=== PATIENT | female | born 1965 | race Caucasian/White ===

== ENCOUNTER 2019-01-14 19:40 | Observation (INO) ==
[2019-01-14] MEDS ORDERED: ACETAMINOPHEN 65 ML IV ONE (19:59)
[2019-01-14] MEDS ORDERED: DiphenhydrAMINE HCL 50 MG/ML VIAL IV STA (19:59)
[2019-01-14] MEDS ORDERED: METOCLOPRAMIDE HCL INJ 5 MG/ML 2 ML VIAL IV STA (19:59)
[2019-01-14] MEDS ORDERED: SODIUM CHLORIDE 0.9% 1000ML 1,000 ML IV SCH (20:00)
[2019-01-14] MEDS ORDERED: ACETAMINOPHEN 1000 MG/100 ML IV IV ONE (20:03)
[2019-01-14 20:29] LABS: Appearance Urine Turbid (Clear); Bacteria Urine Automated Negative (Negative); Bilirubin Urine Negative (Negative); Blood Urine Trace (Negative); Color Urine Yellow; Epithelial Cell Urine Auto >30 /lpf (0-5); Glucose Urine UA Negative (Negative); Ketones Urine Trace (Negative); Leukocyte Esterase Urine Negative (Negative); Nitrite Urine Negative (Negative); Protein Urine Negative (Negative); Urobilinogen Urine Negative (Negative)
[2019-01-14 20:39] LABS: Basophils # (auto) 0.02 K/uL (0-0.2); Basophils % (auto) 0.2 %; Hematocrit (blood only) 40.6 % (37-47); Hemoglobin 14.4 g/dL (12.0-16.0); Immature Granulocytes # (auto) 0.03 K/uL (0.00-0.02); Immature Granulocytes % (auto) 0.3 %; Lymphocytes # (auto) 1.09 K/uL (1.2-3.4); Lymphocytes % (auto) 9.7 %; Mean Corpuscular Hgb Conc 35.5 g/dL (32-36); Mean Corpuscular Volume 83.9 fL (80-100); Mean Platelet Volume 8.8 fL (7.4-10.4); Monocytes # (auto) 0.28 K/uL (0.11-0.59); Monocytes % (auto) 2.5 %; Neutrophils # (auto) 9.83 K/uL (1.4-6.5); Neutrophils % (auto) 87.3 %; Platelet Count 272 K/uL (130-400); RDW Coefficient of Variation 12.9 % (11.5-14.5); RDW Standard Deviation 39.2 fL (36.4-46.3); Red Blood Count 4.84 M/uL (4.2-5.4); White Blood Count 11.25 K/uL (4.8-10.8)
[2019-01-14 20:58] LABS: BUN Creatinine Ratio 20.3 (10-20); Calcium 9.2 mg/dl (8.5-10.1); Creatinine Clr Calc Pharmacy 117.6 ml/min; Est GFR (African American) 119.6; Est GFR (Non-African American) 103.2; Potassium 3.6 mmol/L (3.5-5.1)
--- NOTE | 2019-01-14 20:58 | CT Scan Report ---
CT head/brain wo con CT DOSE: 537.48 mGy.cm HISTORY: Nausea vertigo TECHNIQUE: Multiaxial CT images of the head were performed without the use of intravenous contrast. A dose lowering technique was utilized adhering to the principles of ALARA. Comparison: None. Findings: The paranasal sinuses and mastoid air cells are clear. The calvarium and skull base are int act. The ventricles and sulci are within normal limits. There is no mass, hematoma, midline shift, or acute infarct. Impression: No acute intracranial abnormality. The above report was generated using voice recognition software. It may contain grammatical, syntax or spelling errors. Electronically signed by: Karsten De La Rosa M.D. 01/14/2019 8:57 PM
[2019-01-14] MEDS ORDERED: KETOROLAC 30 MG/ML VIAL IV STA (21:22)
[2019-01-14] MEDS ORDERED: SODIUM CHLORIDE 0.9% 1000ML 500 ML IV ONE (21:22)
[2019-01-14] MEDS ORDERED: PROMETHAZINE 25 MG/51 ML BAG IV STA (21:22)
[2019-01-14] MEDS ORDERED: OPTIRAY 320 125ml IV PRN (21:55)
--- NOTE | 2019-01-14 22:06 | CT Scan Report ---
CT angio neck with con HISTORY: Mental status change vertigo/DUCKWORTH TECHNIQUE: Multiaxial CT angiography of the neck was performed IV contrast: None. All measurem ents were calculated based on NASCET criteria. Maximum intensity projection images were also obtaine d. A dose lowering technique was utilized adhering to the principles of ALARA. COMPARISON STUDY: None. FINDINGS: The aortic arch and proximal great vessels are widely patent. There is no significant sten osis, occlusion, or dissection identified within the bilateral common carotid, internal carotid, or v ertebral arteries. IMPRESSION: No significant stenosis, occlusion, or dissection identified within the carotid or vertebral arteries . The above report was generated using voice recognition software. It may contain grammatical, syntax or spelling errors. Electronically signed by: Karsten De La Rosa M.D. 01/14/2019 10:04 PM
--- NOTE | 2019-01-14 22:07 | CT Scan Report ---
CT angio head w con HISTORY: Mental status change vertigo/DUCKWORTH TECHNIQUE: Multiaxial CT angiography of the head was performed IV contrast: None. Maximum in tensity projection images were also obtained. A dose lowering technique was utilized adhering to the principles of ALARA. COMPARISON: None. FINDINGS: There is no mass, hematoma, midline shift, or acute infarct. Visualized intracranial international project manager al carotid arteries, distal vertebral arteries, and basilar artery are widely patent. There is no sig nificant stenosis, occlusion, or aneurysm seen within the bilateral ACAs, MCAs, or slate trimmer. IMPRESSION: No significant stenosis, occlusion, or aneurysm within the [place]. The above report was generated using voice recognition software. It may contain grammatical, syntax or spelling errors. Electronically signed by: Karsten De La Rosa M.D. 01/14/2019 10:05 PM
--- NOTE | 2019-01-14 23:00 | Emergency Department Note ---
Entered by Raymond Obrien acting as a scribe for History of Present Illness General Chief complaint: Vomiting Stated complaint: VOMITING, DIZZINESS Time Seen by Provider: 01/14/19 19:43 History of Present Illness Onset (ago): hour(s) 6 Location: abdomen Pain Consistency: + intermittent Maximum Pain Intensity: 0 Quality: + other ("room spinning") Exacerbated By: + movement Associated symptoms: + denies other symptoms (ear pain, ear ringing, vision problems, abdominal pain, ), + cough, + nausea/vomiting and + other (dizziness,) The patient is a 53 white female w/ PMHx IBS, hiatal hernia, and heart murmur who presents to the ED w/ CC of intermittent vomiting beginning 6 hours ago. The patient states she had lunch and then went to work. She states when she was at work all of a sudden she started to feel sick. She states she vomited many times. She notes it feels like the room is spinning. She states this has never happened before. The patient notes she feels very dizzy. She notes she has nausea from the room spinning. She states she has had some diarrhea and notes she loses control of her bowels sometimes when she vomits. She notes she had a cough before her symptoms began. She states she has cramping in her lower abdomen. The patient states she takes a daily aspirin and takes vitamins. The patient denies recent trauma, ear pain, ear ringing, vision problems, abdominal pain, recent surgeries, alcohol or tobacco use, changes in her diet, and any drug allergies. She states no one else is sick at home. She notes she smoked many years ago. Home Medications Home Medications Medication Instructions Recorded Confirmed Type ascorbic acid (vitamin C) [Vitamin 500 mg PO DAILY 01/14/19 01/14/19 History C] aspirin [Aspirin Low Dose] 81 mg PO DAILY 01/14/19 01/14/19 History cyanocobalamin (vitamin B-12) 1,000 mcg PO DAILY 01/14/19 01/14/19 History modafinil 200 mg PO DAILY 01/14/19 01/14/19 History pantoprazole 40 mg PO QPM 01/14/19 01/14/19 History umeclidinium-vilanterol [Anoro 1 puff INHALATION DAILY 01/14/19 01/14/19 History Ellipta] fluticasone propionate [Flonase 1 sprays INTNAS DAILY #15.8 gm 01/15/19 Rx Allergy Relief] lisinopril 2.5 mg PO QAM #30 tab 01/15/19 Rx oxymetazoline [Afrin 2 sprays INTNAS BID 3 Days #30 ml 01/15/19 Rx (oxymetazoline)] Allergies Allergy/AdvReac Type Severity Reaction Status Date / Time No Known Allergies Allergy Unverified 01/14/19 20:43 Past Med/Surg History Medical History Heart murmur Hiatal hernia IBS (irritable bowel syndrome) Surgical History No pertinent past surgical history Social History Preferred Language: Korean Communication Ability: Effective Beliefs That Will Affect Care: None Current Living Situation: Family Other Information That Helps Us Care for You: No Feels Safe at Home: Yes Safety Concerns: Feels Safe At This Time Smoking Status: Never smoker Do You Dip or Chew Tobacco: No Second Hand Exposure: No Tobacco Cessation Education Requested by Patient: No Hx Alcohol Use: No Hx Substance Use: No Review of Systems See HPI for pertinent positives & negatives. Physical Exam Vital Signs Vital Signs - 24 hr 01/14/19 19:44 01/14/19 21:16 01/14/19 22:28 Temperature 36.3 C L Temperature Source Oral Sepsis Recent Fever Within 48 Hours No Sepsis New/Unexplained Change in Mental Status No Sepsis Action Taken by Nursing No Action Required Pulse Rate 67 Pulse Rate [Right Finger] 69 85 Respiratory Rate 18 18 18 Respiratory Effort / Characteristics Non-Labored Respiratory Depth Normal Respiratory Pattern Regular Blood Pressure 193/101 H Blood Pressure [Right Arm] 207/105 H 195/107 H Blood Pressure Mean 131 Blood Pressure Mean [Right Arm] 139 136 Pulse Oximetry 97 98 98 Oxygen Delivery Method Room Air 01/14/19 23:35 Temperature Temperature Source Sepsis Recent Fever Within 48 Hours Sepsis New/Unexplained Change in Mental Status Sepsis Action Taken by Nursing Pulse Rate Pulse Rate [Right Finger] 89 Respiratory Rate 17 Respiratory Effort / Characteristics Non-Labored Spontaneous Respiratory Depth Normal Respiratory Pattern Regular Blood Pressure Blood Pressure [Right Arm] 155/71 H Blood Pressure Mean Blood Pressure Mean [Right Arm] 99 Pulse Oximetry 97 Oxygen Delivery Method Room Air GENERAL: Well appearing, well nourished, NAD, non-toxic. EYE EXAM: Normal conjunctiva. PERRL, no anisocoria and EOM's grossly intact w/o pain. Rightwards beating nystagmus on Rward gaze. No vertical or gyrational nystagmus. EARS: TMs clear bilaterally. Good light reflex. No effusion. OROPHARYNX: Moist mucous membranes. Normal dentition. NECK: Supple, no nuchal rigidity, no adenopathy, non-tender. no signs of meningismus. LUNGS: Clear to auscultation. Normal chest wall mechanics. HEART: NSR, no MRG. ABDOMEN: Abdomen soft, non-tender, normo-active bowel sounds, no masses, no rebound or guarding. BACK: No CVA TTP. SKIN: No rashes and no bruising. UPPER EXTREMITIES: Upper extremities are grossly normal. LOWER EXTREMITIES: No pitting edema. No calf pain. NEURO EXAM: Cranial nerves II-XII grossly intact, normal speech. No sensory deficits, normal pronator drift. 5/5 strength throughout. Moves all 4 extremities on command w/o issue. Course 1952: The patient was evaluated in room B6, and a complete history and physical examination were performed. 2129: I reevaluated the patient. She states she is feeling a little better. []: I reviewed the patient's case with []. [] will evaluate the patient for further management. Administered Medications Aspirin (Ecotrin Ectab) 81 mg PO DAILY [facility] Stop: 02/14/19 08:59 Last Admin: 01/15/19 08:39 Dose: 81 mg Documented by: [id number] Cyanocobalamin (Vitamin B-12) 1,000 mcg PO DAILY AJ Stop: 02/14/19 08:59 Last Admin: 01/15/19 08:39 Dose: 1,000 mcg Documented by: [id number] Enoxaparin Sodium (Lovenox) 40 mg SQ QAM [facility] Stop: 02/14/19 08:59 Last Admin: 01/15/19 09:30 Dose: 40 mg Documented by: [id number] Potassium Chloride/Sodium Chloride (Normal Saline W/20 Meq Kcl) 20 meq in 1,000 mls @ 60 mls/hr IV .[id number] [facility] Stop: 01/15/19 21:45 Last Admin: 01/15/19 05:39 Dose: 60 mls/hr Documented by: [id number] Meclizine HCl (Antivert) 12.5 mg PO QID PRN PRN Reason: Dizziness or Vertigo Stop: 02/14/19 05:05 Last Admin: 01/15/19 08:39 Dose: 12.5 mg Documented by: [id number] Miscellaneous (Order Awaiting Action) 1 ea N/A QS AJ Stop: 02/14/19 07:59 Last Admin: 01/15/19 08:39 Dose: Not Given Documented by: [id number] Modafinil (Provigil) 200 mg PO DAILY AJ Stop: 02/14/19 08:59 Last Admin: 01/15/19 08:38 Dose: 200 mg Documented by: [id number] Discontinued Medications Acetaminophen (Ofirmev) Confirm Administered Dose 1,000 mg IV .STK-MED ONE Stop: 01/14/19 20:04 Last Admin: 01/14/19 20:25 Dose: Not Given Documented by: [id number] Dexamethasone Sodium Phosphate (Decadron Pf) 10 mg IV NOW ONE Stop: 01/14/19 23:13 Last Admin: 01/14/19 23:35 Dose: 10 mg Documented by: [id number] Diphenhydramine HCl (Benadryl) 25 mg IV NOW STA Stop: 01/14/19 20:00 Last Admin: 01/14/19 20:25 Dose: Not Given Documented by: [id number] Acetaminophen (Ofirmev) 65 mls @ 200 mls/hr IV NOW ONE Stop: 01/14/19 20:18 Last Infusion: 01/14/19 21:16 Dose: 0 mls/hr Documented by: [id number] Admin: 01/14/19 20:25 Dose: 200 mls/hr Documented by: [id number] Sodium Chloride (Nss 1000ml) 1,000 mls @ 999 mls/hr IV .Q1H1M AJ Stop: 01/14/19 21:00 Last Infusion: 01/14/19 22:29 Dose: 0 mls/hr Documented by: [id number] Admin: 01/14/19 20:25 Dose: 999 mls/hr Documented by: [id number] Sodium Chloride (Nss 1000ml) 500 mls @ 999 mls/hr IV .Q31M ONE Stop: 01/14/19 21:52 Last Infusion: 01/14/19 22:28 Dose: 0 mls/hr Documented by: [id number] Admin: 01/14/19 21:22 Dose: 999 mls/hr Documented by: [id number] Promethazine HCl (Phenergan) 25 mg in 51 mls @ 204 mls/hr IV NOW STA Stop: 01/14/19 21:36 Last Infusion: 01/14/19 22:29 Dose: 0 mls/hr Documented by: [id number] Admin: 01/14/19 21:36 Dose: 204 mls/hr Documented by: [id number] Ioversol (Optiray 320 125ml) 117 ml IV ONCE PRN PRN Reason: Interaction Checking Stop: 01/18/19 21:54 Last Admin: 01/14/19 21:56 Dose: 117 ml Documented by: [id number] Ketorolac Tromethamine (Toradol) 30 mg IV NOW STA Stop: 01/14/19 21:23 Last Admin: 01/14/19 21:36 Dose: 30 mg Documented by: [id number] Lisinopril (Zestril) 2.5 mg PO NOW STA Stop: 01/14/19 23:17 Last Admin: 01/14/19 23:35 Dose: 2.5 mg Documented by: [id number] Meclizine HCl (Antivert) 25 mg PO NOW STA Stop: 01/14/19 23:13 Last Admin: 01/14/19 23:35 Dose: 25 mg Documented by: [id number] Metoclopramide HCl (Reglan) 10 mg IV NOW STA Stop: 01/14/19 20:00 Last Admin: 01/14/19 20:25 Dose: 10 mg Documented by: [id number] Medical Decision Making Medical Records Attestation: I reviewed the patient's medical records. Home Medications Current Medication List: was personally reviewed by me Laboratory Data Attestation: I reviewed the patient's lab results. Result diagrams: 01/14/19 20:23 01/14/19 20:23 Lab Results 01/13/19 01/14/19 01/14/19 Range/Units 20:23 17:52 20:23 WBC 11.25 H (4.8-10.8) K/uL RBC 4.84 (4.2-5.4) M/uL Hgb 14.4 (12.0-16.0) g/dL Hct 40.6 (37-47) % MCV 83.9 (80-100) fL MCH 29.8 (25-34) pg MCHC 35.5 (32-36) g/dL RDW Std Deviation 39.2 (36.4-46.3) fL RDW Coeff of Mary 12.9 (11.5-14.5) % Plt Count 272 (130-400) K/uL MPV 8.8 (7.4-10.4) fL Immature Gran % (Auto) 0.3 % Neut % (Auto) 87.3 % Lymph % (Auto) 9.7 % Henry % (Auto) 2.5 % Eos % (Auto) 0.0 % Baso % (Auto) 0.2 % Immature Gran # (Auto) 0.03 H (0.00-0.02) K/uL Neut # (Auto) 9.83 H (1.4-6.5) K/uL Lymph # (Auto) 1.09 L (1.2-3.4) K/uL Henry # (Auto) 0.28 (0.11-0.59) K/uL Eos # (Auto) 0.00 (0-0.5) K/uL Baso # (Auto) 0.02 (0-0.2) K/uL Sodium (136-145) mmol/L Potassium (3.5-5.1) mmol/L Chloride (98-107) mmol/L Carbon Dioxide (21-32) mmol/L Anion Gap (3-11) BUN (7-18) mg/dl Creatinine (0.6-1.2) mg/dl Est Cr Clr Drug Dosing ml/min Est GFR ( Amer) Est GFR (Non-Af Amer) BUN/Creatinine Ratio (10-20) Glucose (70-99) mg/dl Estimat Average Glucose 114 mg/dl Hemoglobin A1c 5.6 (4.5-5.6) % Calcium (8.5-10.1) mg/dl Total Bilirubin (0.2-1) mg/dl Direct Bilirubin (0-0.2) mg/dl AST (15-37) U/L ALT (12-78) U/L Alkaline Phosphatase (45-117) U/L Total Protein (6.4-8.2) gm/dl Albumin (3.4-5.0) gm/dl TSH (0.300-4.500) uIu/ml Urine Color Yellow Urine Appearance Turbid A (Clear) Urine pH 8.0 H (4.5-7.5) Ur Specific [place] 1.020 (1.000-1.030) Urine Protein Negative (Negative) Urine Glucose (UA) Negative (Negative) Urine Ketones Trace H (Negative) Urine Blood Trace H (Negative) Urine Nitrite Negative (Negative) Urine Bilirubin Negative (Negative) Urine Urobilinogen Negative (Negative) Ur Leukocyte Esterase Negative (Negative) Urine WBC (Auto) 1-5 (0-5) /hpf Urine RBC (Auto) 5-10 H (0-4) /hpf U Hyaline Cast (Auto) 1-5 (0-5) /lpf U Epithel Cells (Auto) >30 H (0-5) /lpf Urine Bacteria (Auto) Negative (Negative) 01/14/19 Range/Units 20:23 WBC (4.8-10.8) K/uL RBC (4.2-5.4) M/uL Hgb (12.0-16.0) g/dL Hct (37-47) % MCV (80-100) fL MCH (25-34) pg MCHC (32-36) g/dL RDW Std Deviation (36.4-46.3) fL RDW Coeff of Mary (11.5-14.5) % Plt Count (130-400) K/uL MPV (7.4-10.4) fL Immature Gran % (Auto) % Neut % (Auto) % Lymph % (Auto) % Henry % (Auto) % Eos % (Auto) % Baso % (Auto) % Immature Gran # (Auto) (0.00-0.02) K/uL Neut # (Auto) (1.4-6.5) K/uL Lymph # (Auto) (1.2-3.4) K/uL Henry # (Auto) (0.11-0.59) K/uL Eos # (Auto) (0-0.5) K/uL Baso # (Auto) (0-0.2) K/uL Sodium 139 (136-145) mmol/L Potassium 3.6 (3.5-5.1) mmol/L Chloride 105 (98-107) mmol/L Carbon Dioxide 27 (21-32) mmol/L Anion Gap 7.0 (3-11) BUN 12 (7-18) mg/dl Creatinine 0.59 L (0.6-1.2) mg/dl Est Cr Clr Drug Dosing 117.6 ml/min Est GFR ( Amer) 119.6 Est GFR (Non-Af Amer) 103.2 BUN/Creatinine Ratio 20.3 H (10-20) Glucose 132 H (70-99) mg/dl Estimat Average Glucose mg/dl Hemoglobin A1c (4.5-5.6) % Calcium 9.2 (8.5-10.1) mg/dl Total Bilirubin 0.5 (0.2-1) mg/dl Direct Bilirubin 0.2 (0-0.2) mg/dl AST 20 (15-37) U/L ALT 32 (12-78) U/L Alkaline Phosphatase 159 H (45-117) U/L Total Protein 7.6 (6.4-8.2) gm/dl Albumin 4.2 (3.4-5.0) gm/dl TSH 0.936 (0.300-4.500) uIu/ml Urine Color Urine Appearance (Clear) Urine pH (4.5-7.5) Ur Specific [place] (1.000-1.030) Urine Protein (Negative) Urine Glucose (UA) (Negative) Urine Ketones (Negative) Urine Blood (Negative) Urine Nitrite (Negative) Urine Bilirubin (Negative) Urine Urobilinogen (Negative) Ur Leukocyte Esterase (Negative) Urine WBC (Auto) (0-5) /hpf Urine RBC (Auto) (0-4) /hpf U Hyaline Cast (Auto) (0-5) /lpf U Epithel Cells (Auto) (0-5) /lpf Urine Bacteria (Auto) (Negative) Imaging Data Radiologist's Impression: Radiology results as stated below per my review and the radiologist's interpretation: CT head/brain wo con CT DOSE: 537.48 mGy.cm HISTORY: Nausea vertigo TECHNIQUE: Multiaxial CT images of the head were performed without the use of intravenous contrast. A dose lowering technique was utilized adhering to the principles of ALARA. Comparison: None. Findings: The paranasal sinuses and mastoid air cells are clear. The calvarium and skull base are intact. The ventricles and sulci are within normal limits. There is no mass, hematoma, midline shift, or acute infarct. Impression: No acute intracranial abnormality. The above report was generated using voice recognition software. It may contain grammatical, syntax or spelling errors. Electronically signed by: Karsten De La Rosa M.D. 01/14/2019 8:[address] angio head w con HISTORY: Mental status change vertigo/DUCKWORTH TECHNIQUE: Multiaxial CT angiography of the head was performed IV contrast: None. Maximum intensity projection images were also obtained. A dose lowering technique was utilized adhering to the principles of ALARA. COMPARISON: None. FINDINGS: There is no mass, hematoma, midline shift, or acute infarct. Visualized intracranial internal carotid arteries, distal vertebral arteries, and basilar artery are widely patent. There is no significant stenosis, occlusion, or aneurysm seen within the bilateral ACAs, MCAs, or microsoft net developer. IMPRESSION: No significant stenosis, occlusion, or aneurysm within the [place]. The above report was generated using voice recognition software. It may contain grammatical, syntax or spelling errors. Electronically signed by: Karsten De La Rosa M.D. 01/14/2019 10:05 PM Dictated: 01/14/192203 Transcribed: 01/14/192203 CT angio neck with con HISTORY: Mental status change vertigo/DUCKWORTH TECHNIQUE: Multiaxial CT angiography of the neck was performed IV contrast: None. All measurements were calculated based on NASCET criteria. Maximum intensity projection images were also obtained. A dose lowering technique was utilized adhering to the principles of ALARA. COMPARISON STUDY: None. FINDINGS: The aortic arch and proximal great vessels are widely patent. There is no significant stenosis, occlusion, or dissection identified within the bilateral common carotid, internal carotid, or vertebral arteries. IMPRESSION: No significant stenosis, occlusion, or dissection identified within the carotid or vertebral arteries. The above report was generated using voice recognition software. It may contain grammatical, syntax or spelling errors. Electronically signed by: Karsten De La Rosa M.D. 01/14/2019 10:04 PM Dictated: 01/14/192200 Transcribed: 01/14/192200 ECG Data Attestation: I personally reviewed and interpreted this ECG as follows: Indication: vomiting Rate (beats per minute): 66 Rhythm: normal sinus Findings: + other (normal intervals and axis), + RBBB (incomplete) and + T-wave inversion (lead 3 and avF) Blood Pressure Blood Pressure Findings: Elevated blood pressure Blood Pressure Disposition: further management by hospitalist AMELIA Andre The patient is a 53 white female w/ PMHx IBS, hiatal hernia, and heart murmur who presents to the ED w/ CC of intermittent vomiting beginning 6 hours ago. Differential Diagnosis: Acute intracranial bleed, trauma, meningitis, encephalitis, increased intracranial pressure, mass or mass effect, facial or dental infection, temporal arteritis, CVA, TIA, acute hypertensive emergency, sinusitis, carbon monoxide exposure. Patient was seen and evaluated the bedside. The patient was complaining of some vertiginous symptoms and associated nausea with vomiting. Patient denies any trauma. The patient states she has not had any recent sore throat congestion or cough. The patient denies any numbness tingling or weakness. On exam the patient does have some nystagmus. It is not vertical nor gyration on. Patient has a soft abdomen otherwise. The patient did have blood work completed along with a CT of the brain. Blood work unremarkable. CT the brain is negative acute. The patient still fairly symptomatic so she was treated with additional medications and did have a CT angiography completed of the head neck. No obvious stenosis or aneurysm visualized. The patient states that she was feeling somewhat improved but still was having some mild ambulatory dysfunction. The patient was trialed with some drinks of the eat. Upon reassessment patient was still symptomatic and not feeling very well. Given the patient's persistent vertiginous symptoms and associated ambulatory dysfunction list agreed to further evaluate treat the patient. Patient was admitted to the medicine service. Impression & Plan Vertigo, Nausea & vomiting Discharge Plan Visit Data *Final* Discharge Date/Time: 01/15/19 04:25 Chief Complaint: Vomiting Stated Complaint: VOMITING, DIZZINESS ED Provider: Osbaldo Tidwell Discharge Problem: Vertigo, Nausea & vomiting Patient Disposition: Admitted As Inpatient Condition: Good Discharge Instructions Interventions: ED Discharge Assessment Last Done: 01/15/19 04:25 Discharge Problem: Nausea & vomiting Qualifiers: Vomiting type: unspecified Vomiting Intractability: non-intractable Qualified Code(s): R11.2 - Nausea with vomiting, unspecified The scribe's documentation has been prepared under my direction and personally reviewed by me in its entirety. I confirm that the note above accurately reflects all work, treatment, procedures, and medical decision making performed by me.
[2019-01-14] MEDS ORDERED: MECLIZINE HCL 25 MG TAB PO STA (23:12)
[2019-01-14] MEDS ORDERED: DEXAMETHASONE **PF** INJ 10 MG/ML VIAL IV ONE (23:12)
[2019-01-14] MEDS ORDERED: LISINOPRIL 5 MG TAB PO STA (23:16)
[2019-01-14 23:46] LABS: Albumin Level 4.2 gm/dl (3.4-5.0); Bilirubin Direct 0.2 mg/dl (0-0.2); Bilirubin,Total 0.5 mg/dl (0.2-1); Total Protein 7.6 gm/dl (6.4-8.2)
--- NOTE | 2019-01-15 01:39 | History & Physical Report ---
Date of Service January 15, 2019 Assessment & Plan (1) Dizziness: Dizziness Multifactorial : Acute peripheral vertigo Hypertensive urgency, possibly chronic given LAE, LVH on EKG Hyperglycemia rule out DM OBS Medical telemetry Symptomatic management for acute vertigo May benefit from Elbert maneuver if persistent. Initiate low-dose KVNG inhibitor for hypertension check hemoglobin A1c DVT prophylaxis. Lovenox subcu Full code History of Present Illness Chief Complaint: Dizziness Primary Care Provider: ABNER MCLAUGHLIN History obtained from patient, family, and records. Medical history significant for mitral valve prolapse, GERD, IBS, diarrhea predominant, past tobacco abuse. Patient was working on her home yard today when she felt sick, subsequent nausea, emesis. Usual loose stools from IBS. She experienced dizziness described as spinning, no chest pain, no S OB, no headache. Dizziness worse with head motion, improved with eye closure. No recent head trauma, No ear ringing, visual problems. Patient received IV Decadron at the ER for vertigo. Dizziness symptoms much improved but patient still woozy, not sure if she can drive home. Medical History as above Surgical History : Hysterectomy, cholecystectomy, carpal tunnel surgery Family History : Hypertension Personal/Social history : Past tobacco abuse, occasional EtOH intake, retired hospital cashier clerk Allergies Allergy/AdvReac Type Severity Reaction Status Date / Time No Known Allergies Allergy Unverified 01/14/19 20:43 Home Medications Home Medications Medication Instructions Recorded Confirmed Type ascorbic acid (vitamin C) [Vitamin 500 mg PO DAILY 01/14/19 01/14/19 History C] aspirin [Aspirin Low Dose] 81 mg PO DAILY 01/14/19 01/14/19 History cyanocobalamin (vitamin B-12) 1,000 mcg PO DAILY 01/14/19 01/14/19 History modafinil 200 mg PO DAILY 01/14/19 01/14/19 History pantoprazole 40 mg PO QPM 01/14/19 01/14/19 History umeclidinium-vilanterol [Anoro 1 puff INHALATION DAILY 01/14/19 01/14/19 History Ellipta] Past Med/Surg History Medical History Heart murmur Hiatal hernia IBS (irritable bowel syndrome) Surgical History No pertinent past surgical history Social History Preferred Language: [place] Communication Ability: Effective Beliefs That Will Affect Care: None Current Living Situation: Family Other Information That Helps Us Care for You: No Feels Safe at Home: Yes Safety Concerns: Feels Safe At This Time Smoking Status: Never smoker Do You Dip or Chew Tobacco: No Second Hand Exposure: No Tobacco Cessation Education Requested by Patient: No Hx Alcohol Use: No Hx Substance Use: No Review of Systems Review of Systems: As per HPI, all 10 systems reviewed, all other ROS negative Physical Exam Physical Exam: GENERAL: Slightly uncomfortable, no respiratory distress SKIN: Normal color, warm HEENT: [place] palpebral conjunctivae, no ptosis, dry buccal mucosa NECK : Supple, no tenderness CHEST : CTA, no tenderness HEART : RRR, systolic murmurs ABDOMEN: Some distention, nontender EXTREMITIES : No LE swelling/tenderness, no other conspicuous deformities noted NEUROLOGIC : Coherent, no facial asymmetry, horizontal nystagmus noted, no other gross focality Results & Data Vital Signs (Past 12 Hours) Vital Signs Temp Pulse Pulse Resp BP BP Pulse Ox 01/14/19 23:35 89 17 155/71 H 97 01/14/19 22:28 85 18 195/107 H 98 01/14/19 21:16 69 18 207/105 H 98 01/14/19 19:44 36.3 C L 67 18 193/101 H 97 Laboratory Results Laboratory Results WBC 11.25 K/uL (4.8-10.8) H 01/14/19 20:23 RBC 4.84 M/uL (4.2-5.4) 01/14/19 20:23 Hgb 14.4 g/dL (12.0-16.0) 01/14/19 20:23 Hct 40.6 % (37-47) 01/14/19 20:23 MCV 83.9 fL (80-100) 01/14/19 20:23 MCH 29.8 pg (25-34) 01/14/19 20:23 MCHC 35.5 g/dL (32-36) 01/14/19 20:23 RDW Std Deviation 39.2 fL (36.4-46.3) 01/14/19 20:23 RDW Coeff of Mary 12.9 % (11.5-14.5) 01/14/19 20:23 Plt Count 272 K/uL (130-400) 01/14/19 20:23 MPV 8.8 fL (7.4-10.4) 01/14/19 20: Immature Gran % (Auto) 0.3 % 01/14/19 20:23 Neut % (Auto) 87.3 % 01/14/19 20:23 Lymph % (Auto) 9.7 % 01/14/19 20:23 [place] % (Auto) 2.5 % 01/14/19 20: Eos % (Auto) 0.0 % 01/14/19 20: Baso % (Auto) 0.2 % 01/14/19 20: Immature Gran # (Auto) 0.03 K/uL (0.00-0.02) H 01/14/19 20: Neut # (Auto) 9.83 K/uL (1.4-6.5) H 01/14/19 20: Lymph # (Auto) 1.09 K/uL (1.2-3.4) L 01/14/19 20: [place] # (Auto) 0.28 K/uL (0.11-0.59) 01/14/19 20: Eos # (Auto) 0.00 K/uL (0-0.5) 01/14/19 20: Baso # (Auto) 0.02 K/uL (0-0.2) 01/14/19 20:23 Sodium 139 mmol/L (136-145) 01/14/19 20: Potassium 3.6 mmol/L (3.5-5.1) 01/14/19 20: Chloride 105 mmol/L (98-107) 01/14/19 20: Carbon Dioxide 27 mmol/L (21-32) 01/14/19 20:23 Anion Gap 7.0 (3-11) 01/14/19 20: BUN 12 mg/dl (7-18) 01/14/19 20: Creatinine 0.59 mg/dl (0.6-1.2) L 01/14/19 20: Est Cr Clr Drug Dosing 117.6 ml/min 01/14/19 20: Est GFR ( Amer) 119.6 01/14/19 20:23 Est GFR (Non-Af Amer) 103.2 01/14/19 20:23 BUN/Creatinine Ratio 20.3 (10-20) H 01/14/19 20:23 Glucose 132 mg/dl (70-99) H 01/14/19 20:23 Calcium 9.2 mg/dl (8.5-10.1) 01/14/19 20:23 Total Bilirubin 0.5 mg/dl (0.2-1) 01/14/19 20:23 Direct Bilirubin 0.2 mg/dl (0-0.2) 01/14/19 20:23 AST 20 U/L (15-37) 01/14/19 20:23 ALT 32 U/L (12-78) 01/14/19 20:23 Alkaline Phosphatase 159 U/L (45-117) H 01/14/19 20:23 Total Protein 7.6 gm/dl (6.4-8.2) 01/14/19 20:23 Albumin 4.2 gm/dl (3.4-5.0) 01/14/19 20:23 TSH 0.936 uIu/ml (0.300-4.500) 01/14/19 20:23 Urine Color Yellow 01/14/19 17:52 Urine Appearance Turbid (Clear) A 01/14/19 17:52 Urine pH 8.0 (4.5-7.5) H 01/14/19 17:52 Ur Specific [place] 1.020 (1.000-1.030) 01/14/19 17:52 Urine Protein Negative (Negative) 01/14/19 17:52 Urine Glucose (UA) Negative (Negative) 01/14/19 17:52 Urine Ketones Trace (Negative) H 01/14/19 17:52 Urine Blood Trace (Negative) H 01/14/19 17:52 Urine Nitrite Negative (Negative) 01/14/19 17:52 Urine Bilirubin Negative (Negative) 01/14/19 17:52 Urine Urobilinogen Negative (Negative) 01/14/19 17:52 Ur Leukocyte Esterase Negative (Negative) 01/14/19 17:52 Urine WBC (Auto) 1-5 /hpf (0-5) 01/14/19 17:52 Urine RBC (Auto) 5-10 /hpf (0-4) H 01/14/19 17:52 U Hyaline Cast (Auto) 1-5 /lpf (0-5) 01/14/19 17:52 U Epithel Cells (Auto) >30 /lpf (0-5) H 01/14/19 17:52 Urine Bacteria (Auto) Negative (Negative) 01/14/19 17:[address] head: No acute intracranial pathology CT angios head: No significant stenosis, occlusion, or aneurysm within the [place]. Chest x-ray as per my interpretation atelectasis EKG as per my interpretation : Rate 65, LAD, LAFB, incomplete right bundle branch block, LAE, LVH, T wave flattening inferior leads
[2019-01-15] MEDS ORDERED: ACETAMINOPHEN 325 MG TAB PO PRN (05:06)
[2019-01-15] MEDS ORDERED: NSS + 20MEQ KCL 20 MEQ/1,000 ML BAG IV STA (05:06)
[2019-01-15] MEDS ORDERED: TRAMADOL HCL 50 MG TABLET PO PRN (05:06)
[2019-01-15] MEDS ORDERED: NITROGLYCERIN SL 0.4 MG/TAB TAB SL PRN (05:06)
[2019-01-15] MEDS ORDERED: MECLIZINE 12.5 MG TAB PO PRN (05:06)
[2019-01-15 06:08] LABS: Estimated Average Glucose 114 mg/dl; Hemoglobin A1C 5.6 % (4.5-5.6)
[2019-01-15 06:51] LABS: Prothrombin Time 10.3 Seconds (9.0-12.0)
--- NOTE | 2019-01-15 07:24 | XRay Report ---
XR chest 1V portable HISTORY: emesis COMPARISON: None. FINDINGS: Left basilar linear densities suggesting scarring or atelectasis. There are low lung volume s. The right lung is clear. The heart is mildly enlarged. Cervical spinal fusion hardware is noted. IMPRESSION: Left basilar linear densities suggesting scarring or atelectasis. Mild cardiomegaly. Electronically signed by: Kwame Nunes M.D. 01/15/2019 7:23 AM
[2019-01-15] MEDS: ANORO ELLIPTA~ORDER AWAITING ACTION SCH ×2 (08:39→15:47)
[2019-01-15] MEDS ORDERED: ASPIRIN 81 MG ECTAB PO SCH (09:00)
[2019-01-15] MEDS ORDERED: MODAFINIL 100 MG TAB PO SCH (09:00)
[2019-01-15] MEDS ORDERED: CYANOCOBALAMIN 500 MCG TABLET (VITAMIN B-12) PO SCH (09:00)
[2019-01-15] MEDS ORDERED: ENOXAPARIN INJ 40 MG/0.4 ML SYR SQ SCH (09:00)
[2019-01-15] MEDS ORDERED: PANTOprazole 40 MG TAB PO SCH (21:00)
[2019-01-16] MEDS ORDERED: LISINOPRIL 2.5 MG TAB PO SCH (09:00)
--- NOTE | 2019-01-23 16:39 | Discharge Summary ---
Date of Service January 23, 2019 Admission HPI Per Admitting Provider History obtained from patient, family, and records. Medical history significant for mitral valve prolapse, GERD, IBS, diarrhea predominant, past tobacco abuse. Patient was working on her home yard today when she felt sick, subsequent nausea, emesis. Usual loose stools from IBS. She experienced dizziness described as spinning, no chest pain, no S OB, no headache. Dizziness worse with head motion, improved with eye closure. No recent head trauma, No ear ringing, visual problems. Patient received IV Decadron at the ER for vertigo. Dizziness symptoms much improved but patient still woozy, not sure if she can dr aylin home. Medical History as above Surgical History : Hysterectomy, cholecystectomy, carpal tunnel surgery Family History : Hypertension Personal/Social history : Past tobacco abuse, occasional EtOH intake, retired hospital office cashier Admission Exam Per Admitting Provider GENERAL: Slightly uncomfortable, no respiratory distress SKIN: Normal color, warm HEENT: [place] palpebral conjunctivae, no ptosis, dry buccal mucosa NECK : Supple, no tenderness CHEST : CTA, no tenderness HEART : RRR, systolic murmurs ABDOMEN: Some distention, nontender EXTREMITIES : No LE swelling/tenderness, no other conspicuous deformities noted NEUROLOGIC : Coherent, no facial asymmetry, horizontal nystagmus noted, no other gross focality Principal Diagnosis Acute peripheral vertigo, resolved Nausea and vomiting, resolved HTN Discharge Data Allergies Allergy/AdvReac Type Severity Reaction Status Date / Time No Known Allergies Allergy Unverified 01/14/19 20:43 Consultations 01/14/19 23:12 ED Decision to Admit Stat Ordered Studies 01/14/19 20:00 CT head/brain wo con Stat 01/14/19 21:22 CT angio head w con Stat CT angio neck with con Stat Hospital Course (1) Nausea & vomiting: (2) Vertigo: (3) HTN (hypertension): 53-year-old female presented to the ER with coughing nausea vomiting dizziness that began acutely after working hard outside in her garden, 6 hours prior to arrival. On arrival to the ER blood pressure was 193/101 and went up to 207/105. Pulse was normal she was afebrile, and oxygenating well on room air. On physical exam she was well-appearing, well-nourished and nontoxic. The there were no gross neurologic deficits. Lab work revealed a white blood cell count of 11 with CBC, BMP within normal limits otherwise. A1c was 5.6, UA was negative for infection, TSH was normal. CT without contrast of the brain was performed revealing no acute intracranial abnormality. CT angiogram of the head and neck were performed revealing no significant stenosis, occlusion, or aneurysm within the [place] and no significant stenosis, occlusion, or dissection identified within the carotid or vertebral arteries. EKG revealed sinus rhythm at 66 with a right bundle branch block and T wave inversions in lead III and aVF. She did receive a dose of IV Decadron. Despite treatment and trials of eating she was still symptomatic and not feeling very well, so she was admitted to the hospitalist service. Low-dose KVNG inhibitor was started for high blood pressure. The following day her blood pressure was improved to the normal range. On physical exam she was found to have fluid in her ears bilaterally without evidence of erythema. She was given nasal spray to help with decongestion. She was started on a low-dose blood pressure medication at discharge with recommendation for repeat blood work in 2 weeks time and repeat blood pressure check with primary care physician within 1 week. It was noted that she had started modafinil approximately 10 to 14 days prior to onset of symptoms and vertigo is a possible side effect of modafinil. Central cause of vertigo was thought very unlikely. There were no events on telemetry overnight. It was recommended if the vertigo returned once at home she could try to stop the modafinil, which is being given for possible narcolepsy. Physical exam at time of discharge was unremarkable including no neurologic deficits. Symptoms had resolved at this point and the patient was feeling much better. She was sent home in stable condition with close primary care follow-up. Total Time Total Time Spent Total Time Spent (In Minutes): 60 Total Time Includes: Examination of the Patient, Discharge Planning, Medication Reconciliation and Communication With Other Providers Discharge Plan Discharge Items Patient Disposition: Home - Self-Care Reason For Visit: HTN URGENCY Discharge Diagnosis: Acute nonsustained Vertigo Condition: Good Discharge Goals: Improve function Activity: Resume your previous activity Non-emergency contact: Primary Care Provider Call non-emergency contact if: you have any medication questions, your symptoms worsen, your pain is not controlled and you have a fever Follow-up/Referrals: Eddie Juarez Jr, DO [Primary Care Provider] - Addtl Provider Instructions: Please take all medications as instructed below. You are being given some nasal sprays to help with decongestion, which should not affect your blood pressure. Please follow-up with your primary care physician within the next 1-2 weeks for blood pressure monitoring, and obtain an outpatient arm cuff if able for personal tracking. Goal systolic pressure is <140, goal diastolic pressure is <90. You were started on a low dose blood pressure medication called lisinopril. Please take this daily. You will need to have non-fasting bloodwork drawn in the next two weeks time for monitoring, which can be done through your primary care physician. It was a pleasure taking care of you! Please call if you have any questions or problems. You can reach a [facility] hospitalist on duty at [facility] 24 hours a day by calling [phone]. Take care of yourself. Bertha Altman, DO [facility] Hospitalist Prescriptions: New lisinopril 2.5 mg Tablet 2.5 mg PO QAM Qty: 30 RF: 0 fluticasone propionate [Flonase Allergy Relief] 50 mcg/actuation spray,suspension 1 sprays INTNAS DAILY Qty: 15.8 RF: 0 Continued cyanocobalamin (vitamin B-12) 1,000 mcg Tablet 1,000 mcg PO DAILY RF: 0 aspirin [Aspirin Low Dose] 81 mg Tablet,Delayed Release (Dr/Ec) 81 mg PO DAILY RF: 0 modafinil 200 mg tablet 200 mg PO DAILY RF: 0 ascorbic acid (vitamin C) [Vitamin C] 500 mg Tablet 500 mg PO DAILY RF: 0 pantoprazole 40 mg tablet,delayed release (DR/EC) 40 mg PO QPM RF: 0 Anoro Ellipta 62.5-25 mcg/actuation blister with device 1 puff inhalation DAILY RF: 0 Stand-Alone Forms: My [facility] Discharge Orders: Discharge Order (Routine); Ordered 01/15/19 Ordered By: Bertha Altman Admission Data Admit Date/Time: 01/15/19 01:40 Attending Provider: Bertha Altman Admit Provider: Karthikeyan Queen Primary Care Provider: Eddie Juarez Jr Other Providers: Karthikeyan Queen Service: Telemetry Medical Other Interventions: Discharge Summary Assessment (RN) Last Done: 01/15/19 15:32 DC Date/Time DO NOT enter until pt leaves facility: 01/15/19 18:01
== END 2019-01-15 18:01 | disposition home or self-care (01) ==
LOC: ED 19:40 → 2W 19:40 → SUATTDRO 01-15 01:40 → 2W 01-15 04:25